=== PATIENT | male | born 1970 | race Caucasian/White ===

== ENCOUNTER → 2023-10-31 06:33 | Day surgery (SDC) | payer OTHER, SELFPAY | LOC: GI 06:33 | PROVIDERS: ATTENDING PHYSICIAN Internal Medicine Gastroenterology | DX: Z12.11 Encounter for screening for malignant neoplasm of colon (principal); K51.00 Ulcerative (chronic) pancolitis without complications; K51.40 Inflammatory polyps of colon without complications; K62.1 Rectal polyp; K64.0 First degree hemorrhoids | CPT/HCPCS: 45385; 45380; 45381; 88305 ==

== ENCOUNTER → 2024-08-02 06:46 | Outpatient (REF) | payer OTHER, SELFPAY | LOC: MRI 3T 06:46 | PROVIDERS: ATTENDING PHYSICIAN Family Medicine | DX: R51.9 Headache, unspecified (principal) | CPT/HCPCS: 70551 ==

== ENCOUNTER 2024-12-03 06:25 | Day surgery (SDC) | payer BC, SELFPAY | END 2024-12-03 11:19 | disposition home or self-care (01) | LOC: GI 06:25 | PROVIDERS: ATTENDING PHYSICIAN Internal Medicine Gastroenterology | DX: Z12.11 Encounter for screening for malignant neoplasm of colon (principal); K51.00 Ulcerative (chronic) pancolitis without complications; K64.0 First degree hemorrhoids; K57.30 Diverticulosis of large intestine without perforation or abscess without bleeding; K51.40 Inflammatory polyps of colon without complications; K29.50 Unspecified chronic gastritis without bleeding; K52.89 Other specified noninfective gastroenteritis and colitis | CPT/HCPCS: 45380; 88305 ==